=== PATIENT | male | born 1985 | race Hispanic/Latino ===

== ENCOUNTER 2018-04-05 14:25 | Emergency (ER) | payer SELFPAY ==
[2018-04-05] MEDS ORDERED: Sodium Chloride 0.9% 1,000 ML ONE (15:00)
[2018-04-05] MEDS ORDERED: diphenhydrAMINE 50 MG/ML VIAL ONE (15:14)
[2018-04-05] MEDS ORDERED: Metoclopramide HCl 10 MG/2 ML VIAL ONE (15:15)
== END 2018-04-05 15:49 | disposition home or self-care (01) ==
LOC: NAV ERS 14:25
DX: R51 Headache (principal); F32.9 Major depressive disorder, single episode, unspecified; F17.210 Nicotine dependence, cigarettes, uncomplicated
CPT/HCPCS: 96374; 96375; J1200; J2765; J7050